=== PATIENT | female | born 1960 | race Two or more races ===

== ENCOUNTER 2018-09-12 08:00 | Inpatient (IN) | payer OTHER ==
[~2018-09-12] VITALS: Ht 165.1 cm; Wt 68.0 kg
== END 2018-09-18 08:44 | disposition home or self-care (01) | DRG 658 ==
LOC: SURH 08:00 → O/R 09-15 06:00 → SURH 09-15 07:00
PROVIDERS: ADMIT Urology
PROC: 0TT14ZZ Resection of Left Kidney, Percutaneous Endoscopic Approach (ICD-10-PCS; principal; 2018-09-15 07:00)
DX: C64.2 Malignant neoplasm of left kidney, except renal pelvis (principal)